=== PATIENT | male | born 1945 | race Two or more races ===

== ENCOUNTER 2017-11-09 18:57 | Emergency (ER) | payer MEDICARE ==
[~2017-11-09] VITALS: Ht 170.2 cm; Wt 79.4 kg
[~2017-11-09 18:57] MED LIST: AMLODIPINE BESY10 MG ORAL; AMLODIPINE BESYL5 MG ORAL; BUPROPION XL300 MG ORAL; FOLIC ACID1 MG ORAL; GLIPIZIDE5 MG ORAL; LEVETIRACETAM500 M1 ORAL; LORAZEPAM1 MG ORAL; LOSARTAN-HCTZ1 EACH ORAL; METFORMIN HCL1000 M1 ORAL; METFORMIN HCL500 M1 ORAL; PAROXETINE HCL25 MG ORAL; SALSALATE750 MG ORAL; VITAMIN B-1100 MG ORAL
--- NOTE | 2017-11-09 18:59 | Emergency Room Report ---
History of Present Illness General Chief Complaint: Altered Level of Consciousness Source: Family Member, EMS Present Illness HPI Patient is a 72 male brought in from street after increased altered mental status. Patient was noted to be found lying on the street. He had been noted to have increased loss of consciousness. He had not been vomiting. The patient reportedly had been drinking alcohol earlier in the day. Patient prior history of diabetes. History is markedly limited by patient's confusion and altered mental status. Allergies: Coded Allergies: UNABLE TO ASSESS (Unverified , 11/09/17) Patient History Past Medical History: see triage record Reviewed Nursing Documentation: PMH: Agreed; PSxH: Agreed Nursing Documentation-PMH Hx Diabetes: Yes Review of Systems All Other Systems: negative except mentioned in HPI Physical Exam Vital Signs Date Time Temp Pulse Resp B/P (MAP) Pulse Ox O2 Delivery O2 Flow Rate FiO2 11/09/17 18:45 98.0 113 20 157/89 97 98.1 Sp02 EP Interpretation: reviewed, normal General Appearance: normal inspection, no apparent distress, Chronically Ill Head: atraumatic ENT: normal ENT inspection, hearing grossly normal, normal voice Neck: normal inspection, full range of motion, supple, no bony tend Respiratory: normal inspection, lungs clear, normal breath sounds, no respiratory distress, no retraction, no wheezing Cardiovascular #1: regular rate, rhythm, no edema Gastrointestinal: normal inspection, normal bowel sounds, non tender, soft, no guarding, no hernia Genitourinary: no CVA tenderness Musculoskeletal: normal inspection, back normal, normal range of motion Neurologic: alert, responsive, other - confused, slurring speech Skin: normal inspection, normal color, no rash Medical Decision Making Diagnostic Impression: Primary Impression: Altered level of consciousness Additional Impressions: Alcohol intoxication Leukocytosis High anion gap metabolic acidosis Uncontrolled diabetes mellitus ER Course Patient presented for altered mental status. Differential diagnosis included but was not limited to ischemic stroke, subarachnoid hemorrhage, hypoglycemia, spinal cord injury, neurodegenerative disorder, urinary tract infection, hypoxemia.Because of complexity of patient's case laboratory testing and imaging studies were ordered. The patient noted to have elevated blood sugar. He was started on IV fluids. The patient was noted to have some evidence of prior alcohol abuse. The patient was noted to have elevated white blood count as well as the elevated blood alcohol level. Patient has a significant anion gap. The patient was started on IV insulin. Serum glucose was noted to be elevated. CT the head read by radiology showed normal noncontrast CT of the head. The urinalysis results are currently pending but show no evidence of gross infection.Patient was discussed with Dr. Claire at [facility] . The patient will likely be transferred for continuity of care.EKG interpreted by me showed normal sinus rhythm with a rate of [address] or T wave changes. Labs Test 11/09/17 19:20 White Blood Count 24.8 K/UL (4.8-10.8) Red Blood Count 4.62 M/UL (4.70-6.10) Hemoglobin 15.0 G/DL (14.2-18.0) Hematocrit 42.0 % (42.0-52.0) Mean Corpuscular Volume 91 FL (80-99) Mean Corpuscular Hemoglobin 32.4 PG (27.0-31.0) Mean Corpuscular Hemoglobin Concent 35.6 G/DL (32.0-36.0) Red Cell Distribution Width 10.3 % (11.6-14.8) Platelet Count 224 K/UL (150-450) Mean Platelet Volume 8.7 FL (6.5-10.1) Neutrophils (%) (Auto) % (45.0-75.0) Lymphocytes (%) (Auto) % (20.0-45.0) Monocytes (%) (Auto) % (1.0-10.0) Eosinophils (%) (Auto) % (0.0-3.0) Basophils (%) (Auto) % (0.0-2.0) Differential Total Cells Counted 100 Neutrophils % (Manual) 93 % (45-75) Lymphocytes % (Manual) 4 % (20-45) Monocytes % (Manual) 2 % (1-10) Eosinophils % (Manual) 0 % (0-3) Basophils % (Manual) 0 % (0-2) Band Neutrophils 1 % (0-8) Platelet Estimate Adequate Platelet Morphology Normal Red Blood Cell Morphology Normal Prothrombin Time 10.9 SEC (9.30-11.50) Prothromb Time International Ratio 1.0 (0.9-1.1) Activated Partial Thromboplast Time 24 SEC (23-33) Sodium Level 143 MMOL/L (136-145) Potassium Level 3.4 MMOL/L (3.5-5.1) Chloride Level 100 MMOL/L (98-107) Carbon Dioxide Level 15 MMOL/L (21-32) Anion Gap 28 mmol/L (5-15) Blood Urea Nitrogen 26 mg/dL (7-18) Creatinine 2.6 MG/DL (0.55-1.30) Estimat Glomerular Filtration Rate mL/min (>60) Glucose Level 461 MG/DL (74-106) Calcium Level 9.8 MG/DL (8.5-10.1) Total Bilirubin 0.5 MG/DL (0.2-1.0) Aspartate Amino Transf (AST/SGOT) 31 U/L (15-37) Alanine Aminotransferase (ALT/SGPT) 35 U/L (12-78) Alkaline Phosphatase 92 U/L (46-116) Troponin I 0.108 ng/mL (0.000-0.056) Total Protein 8.5 G/DL (6.4-8.2) Albumin 4.4 G/DL (3.4-5.0) Globulin 4.1 g/dL Albumin/Globulin Ratio 1.1 (1.0-2.7) Serum Alcohol 88 mg/dL Acetone Level Negative (NEGATIVE) EKG Diagnostic Results Rate: normal Rhythm: NSR ST Segments: no acute changes Last Vital Signs Date Time Temp Pulse Resp B/P (MAP) Pulse Ox O2 Delivery O2 Flow Rate FiO2 11/09/17 18:45 98.0 113 20 157/89 97 98.1 Status: improved [facility] Condition: Serious Rupesh Rene MD Nov 09, 2017 18:59
[2017-11-09] MEDS ORDERED: Insulin Human Regular 100units/ml 3ml IV ONE (19:15)
[2017-11-09 19:58] LABS: MEAN CORPUSCULAR VOLUME 91 FL (80-99); PLATELET COUNT 224 K/UL (150-450); RED BLOOD COUNT 4.62 M/UL (4.70-6.10); RED CELL DISTRIBUTION WIDTH 10.3 % (11.6-14.8)
[2017-11-09 20:13] LABS: ANION GAP 28 mmol/L (5-15); BLOOD UREA NITROGEN 26 mg/dL (7-18); CALCIUM 9.8 MG/DL (8.5-10.1); CARBON DIOXIDE 15 MMOL/L (21-32); CHLORIDE 100 MMOL/L (98-107); CREATININE 2.6 MG/DL (0.55-1.30); POTASSIUM 3.4 MMOL/L (3.5-5.1); SODIUM 143 MMOL/L (136-145)
[2017-11-09 20:14] LABS: WHITE BLOOD COUNT 24.8 K/UL (4.8-10.8)
[2017-11-09 20:16] LABS: ALANINE AMINOTRANSFERASE 35 U/L (12-78); ALBUMIN 4.4 G/DL (3.4-5.0); ALBUMIN/GLOBULIN RATIO 1.1 (1.0-2.7); ALKALINE PHOSPHATASE 92 U/L (46-116); ASPARTATE AMINO TRANSFERASE 31 U/L (15-37); BILIRUBIN,TOTAL 0.5 MG/DL (0.2-1.0)
[2017-11-09] MEDS ORDERED: Ampicillin/Sulbactam Sod 3 GM in NS 110 ML IVPB ONE (20:45)
[2017-11-09] MEDS ORDERED: LORazepam Inj 2mg/ml 1ml IV ONE (21:15)
[2017-11-09 23:04] VITALS: BP 119/65
[2017-11-09 23:19] LABS: APPEARANCE,URINE CLEAR; BILIRUBIN, URINE NEGATIVE (NEGATIVE); COLOR,URINE PALE YELLOW; GLUCOSE, URINE (UA) 4+ (NEGATIVE); KETONES,URINE 1+ (NEGATIVE); LEUKOCYTE ESTERASE ,URINE NEGATIVE (NEGATIVE); NITRITE,URINE NEGATIVE (NEGATIVE); PH,URINE 5 (4.5-8.0); PROTEIN,URINE 2+ (NEGATIVE); UROBILINOGEN,URINE NORMAL MG/DL (0.0-1.0)
[2017-11-10 01:00] VITALS: BP 119/65
--- NOTE | 2017-11-10 10:33 | Diagnostic Imaging Report ---
Indication: Altered mental status Technique: Contiguous 5 mm thick transaxial imaging of the head obtained in a Siemens Sensation [address] scanner. Soft tissue and bone windows generated. Automatic Exposure Control was utilized. Total Dose length Product (DLP): 1305.[address] Dose Index Volume (CTDIvol): 70.38 mGy Comparison: none Findings: There is moderate prominence of the ventricles, basal cisterns, and cerebral sulci consistent with atrophy. Moderate, nonspecific, white matter hypoattenuation is noted throughout the brain consistent with chronic small vessel disease. There is no midline shift, edema, acute hemorrhage, mass effect, or abnormal extra-axial fluid collections. Bones and extra osseous soft tissues are unremarkable. Impression: No acute intracranial bleed, mass effect or edema. Moderate atrophy of the brain. Evidence of chronic small vessel disease involving white matter tracts. [facility] has communicated the preliminary results to the Emergency Department. Their findings are largely concordant with this report. The CT scanner at [facility] is accredited by the [employer] and the scans are performed using dose optimization techniques as appropriate to a performed exam including Automatic Exposure control.
== END 2017-11-10 01:00 | disposition short-term general hospital (02) ==
LOC: EDBD 18:57 → MERGE 20:52 → EMR 20:52
DX: F10.129 Alcohol abuse with intoxication, unspecified (principal); D72.829 Elevated white blood cell count, unspecified; E87.2 Acidosis; E11.65 Type 2 diabetes mellitus with hyperglycemia; R41.82 Altered mental status, unspecified
CPT/HCPCS: 36415; 70450; 80053; 81003; 82009; 84484; 85007; 85025; 85610; 85730; 87040; 87181; 93005; 99283; G0480; J0295; J1815; 80329